=== PATIENT | male | born 1975 | race Caucasian/White ===

== ENCOUNTER 2017-11-25 11:46 | Emergency (ER) | payer SELFPAY ==
[2017-11-25] MEDS ORDERED: OXYCODONE-ACETAMINOPHEN 5-325 MG TABLET PO ONE (12:18)
--- NOTE | 2017-11-25 12:21 | ER Document Report ---
ED Extremity Problem, Lower - General Chief Complaint: Foot Pain Stated Complaint: RIGHT FOOT PAIN Time Seen by Provider: 11/25/17 12:14 Notes: Patient is a 42-year-old male patient complaining of right ankle pain. Patient reports that he was playing with his grandkids 3 days ago in twisted his ankle on the playground. Increased pain and swelling to right ankle noted today. Painful ambulation. No previous injury to that ankle. TRAVEL OUTSIDE OF THE [place] IN LAST 30 DAYS: No - HPI Patient complains to provider of: Injury, Pain, Swelling Location: Ankle - right Recent injury: Possibly Exacerbated by: Movement, Walking Relieved by: Nothing - Related Data Allergies/Adverse Reactions: No Known Allergies Allergy (Verified 11/25/17 11:50) Past Medical History - General Information source: Patient - Social History Smoking Status: Current Every Day Smoker Chew tobacco use (# tins/day): No Frequency of alcohol use: None Lives with: Family, Spouse/Significant other Family History: Reviewed & Not Pertinent Patient has suicidal ideation: No Patient has homicidal ideation: No - Past Medical History Cardiac Medical History: Reports: Hx Hypertension Renal/ Medical History: Denies: Hx Peritoneal Dialysis - Immunizations Hx Diphtheria, Pertussis, Tetanus Vaccination: Yes Review of Systems - Review of Systems Constitutional: No symptoms reported EENT: No symptoms reported Cardiovascular: No symptoms reported Respiratory: No symptoms reported Gastrointestinal: No symptoms reported Genitourinary: No symptoms reported Male Genitourinary: No symptoms reported Musculoskeletal: See HPI Skin: No symptoms reported Hematologic/Lymphatic: No symptoms reported Neurological/Psychological: No symptoms reported Physical Exam - Vital signs Vitals: Temp Pulse Resp BP Pulse Ox 97.8 F 91 16 151/72 H 97 11/25/17 11:55 11/25/17 11:55 11/25/17 11:55 11/25/17 11:55 11/25/17 11:55 Interpretation: Normal - General General appearance: Appears well, Alert - HEENT Head: Normocephalic, Atraumatic Eyes: Normal Pupils: PERRL - Respiratory Respiratory status: No respiratory distress Chest status: Nontender Breath sounds: Normal Chest palpation: Normal - Cardiovascular Rhythm: Regular Heart sounds: Normal auscultation Murmur: No - Abdominal Inspection: Normal Distension: No distension Bowel sounds: Normal Tenderness: Nontender Organomegaly: No organomegaly - Back Back: Normal, Nontender - Extremities General upper extremity: Normal inspection, Nontender, Normal color, Normal ROM , Normal temperature Knee: Normal Calf: Normal Ankle: Tender - Positive soft tissue swelling right lateral malleolus., Edema, Limited ROM. No: Deformity, Ecchymosis Foot: Normal - Neurological Neuro grossly intact: Yes Cognition: Normal Orientation: AAOx4 Jong Coma Scale Eye Opening: Spontaneous Jong Coma Scale Verbal: Oriented [place] Coma Scale Motor: Obeys Commands [place] Coma Scale Total: 15 Speech: Normal Motor strength normal: LUE, RUE, LLE, RLE Sensory: Normal - Psychological Associated symptoms: Normal affect, Normal mood - Skin Skin Temperature: Warm Skin Moisture: Dry Skin Color: Normal Course - Re-evaluation Re-evalutation: 11/25/17 12:21 After performing a Medical Screening Examination, I estimate there is LOW risk for OPEN FRACTURE, COMPARTMENT SYNDROME, DEEP VENOUS THROMBOSIS, ACUTE TENDON RUPTURE, or NEUROVASCULAR INJURY. xray is negative. I consider the discharge disposition reasonable. I have reevaluated this patient multiple times and no significant life threatening changes are noted. The patient and I have discussed the diagnosis and risks, and we agree with discharging home to closely follow-up with their primary doctor or the referral orthopedist with the understanding that symptoms and presentations can change. We also discussed returning to the Emergency Department immediately if new or worsening symptoms occur. We have discussed the symptoms which are most concerning (e.g., changing or worsening pain, numbness, weakness) that necessitate immediate return 11/25/17 13:03 - Vital Signs Vital signs: Temp Pulse Resp BP Pulse Ox 97.8 F 91 16 151/72 H 97 11/25/17 11:55 11/25/17 11:55 11/25/17 11:55 11/25/17 11:55 11/25/17 11:55 Discharge - Discharge Clinical Impression: Right ankle injury Qualifiers: Encounter type: initial encounter Qualified Code(s): S99.911A - Unspecified injury of right ankle, initial encounter Right ankle sprain Qualifiers: Encounter type: initial encounter Involved ligament of ankle: unspecified ligament Qualified Code(s): S93.401A - Sprain of unspecified ligament of right ankle, initial encounter Condition: Stable Disposition: HOME, SELF-CARE Instructions: Ankle Stirrup Splint ([facility]), Use of Crutches ([facility]), Ibuprofen ( General) ([facility]), Ice & Elevation ([facility]), Sprained Ankle ([facility]) Additional Instructions: Navi, your x-ray is negative for fracture but I cannot exclude an internal ankle injury Please wear your ankle splint for comfort and support Use your crutches until you are able to bear weight without pain Keep your foot iced and elevated as much as possible Take your ibuprofen and pain medication as prescribed Follow-up with your primary care or orthopedist if pain persists Return to ER for any worsening Prescriptions: Ibuprofen [Motrin 800 Mg Tablet] 800 mg PO Q6H #20 tablet Oxycodone HCl/Acetaminophen [Percocet 5-325 mg Tablet] 1 - 2 tab PO ASDIR PRN # 10 tablet PRN Reason: Forms: Return to Work
[2017-11-25 13:31] VITALS: BP 119/73
--- NOTE | 2017-11-25 13:31 | RADIOLOGY REPORT (SQ) ---
EXAM DESCRIPTION: ANKLE RIGHT COMPLETE COMPLETED DATE/TIME: 11/25/2017 1:14 pm REASON FOR STUDY: right ankle pain, twisted COMPARISON: None. NUMBER OF VIEWS: Three views. TECHNIQUE: AP, lateral, and oblique radiographic images acquired of the right ankle. LIMITATIONS: None. FINDINGS: MINERALIZATION: Normal. BONES: No acute fracture or dislocation. No worrisome bone lesions. JOINTS: Ankle mortise intact. SOFT TISSUES: No soft tissue swelling. No foreign body. OTHER: No other significant finding. IMPRESSION: No acute fractures identified. TECHNICAL DOCUMENTATION: JOB ID: [id number]- All Rights Reserved Reading location - IP/workstation name: [email or web address]
== END 2017-11-25 13:31 | disposition home or self-care (01) ==
LOC: ER 11:46
DX: S93.401A Sprain of unspecified ligament of right ankle, initial encounter (principal); M25.571 Pain in right ankle and joints of right foot; X50.1XXA Overexertion from prolonged static or awkward postures, initial encounter; Y92.838 Other recreation area as the place of occurrence of the external cause; F17.200 Nicotine dependence, unspecified, uncomplicated; I10 Essential (primary) hypertension
CPT/HCPCS: 99283; 73610; L1902

== ENCOUNTER 2019-06-08 18:01 | Emergency (ER) | payer SELFPAY ==
[2019-06-08] MEDS ORDERED: TETRACAINE HCL 0.5% OPH SOLN 4 ML OD ONE (18:22)
--- NOTE | 2019-06-08 18:24 | ER Document Report ---
ED Medical Screen (RME) - General Chief Complaint: Eye Pain Stated Complaint: EYE PAIN Time Seen by Provider: 06/08/19 18:07 TRAVEL OUTSIDE OF THE [place] IN LAST 30 DAYS: No - Related Data Allergies/Adverse Reactions: No Known Allergies Allergy (Verified 11/25/17 11:50) Past Medical History - Past Medical History Cardiac Medical History: Reports: Hx Hypertension Renal/ Medical History: Denies: Hx Peritoneal Dialysis - Immunizations Hx Diphtheria, Pertussis, Tetanus Vaccination: Yes Physical Exam - Vital signs Vitals: Temp Pulse Resp BP Pulse Ox 97.5 F 63 16 133/75 H 97 06/08/19 18:07 06/08/19 18:07 06/08/19 18:07 06/08/19 18:07 06/08/19 18:07 - HEENT Eyes: Tears, Other - +photophobia Conjunctiva: Injected Visual acuity- Right eye: na Visual acuity- Left eye: 20 /40 Visual acuity- Both eyes: 20/50 Corrective lenses worn: No - right eye effected Course - Vital Signs Vital signs: Temp Pulse Resp BP Pulse Ox 97.5 F 63 16 133/75 H 97 06/08/19 18:07 06/08/19 18:07 06/08/19 18:07 06/08/19 18:07 06/08/19 18:07
--- NOTE | 2019-06-08 19:18 | RADIOLOGY REPORT (SQ) ---
EXAM DESCRIPTION: CT ORBIT/SELLA WITHOUT COMPLETED DATE/TIME: 06/08/2019 7:07 pm REASON FOR STUDY: FB to R eye, weedeating, decreased vision COMPARISON: None. TECHNIQUE: Noncontrasted images through the orbits windowed for bone and soft tissue. Additional co kindra and sagittal reconstructed images reviewed. All images stored on PACS. All CT scanners at this facility use dose modulation, iterative reconstruction, and/or weight based d osing when appropriate to reduce radiation dose to as low as reasonably achievable (ALARA). [facility]: Dose Right [facility]: CareDose [facility]: Dose Right [facility]: Teradose 4D [facility]: Smart Tixers RADIATION DOSE: CT Rad equipment meets quality standard of care and radiation dose reduction techniq ues were employed. CTDIvol: 30.4 mGy. DLP: 361 mGy-cm. mGy. LIMITATIONS: None. FINDINGS: FACIAL BONES: No fracture or bone lesion. ORBITS: The optic globes are round and are intact. There is no orbital foreign body or mass. PARANASAL SINUSES: Clear. No significant mucosal thickening, mass or fluid. No nasal polyps. Maxilla ry sinus outlets are patent. SOFT TISSUES: No mass or edema. INFERIOR BRAIN: Limited view. No acute findings. OTHER: No other significant finding. IMPRESSION: NO ACUTE FINDINGS. TECHNICAL DOCUMENTATION: JOB ID: [id number] Quality ID # [id number]: Final reports with documentation of one or more dose reduction techniques (e.g., Au tomated exposure control, adjustment of the mA and/or kV according to patient size, use of iterative reconstruction technique) 2010 [employer]- All Rights Reserved Reading location - IP/workstation name: [email or web address]
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
[2019-06-08] MEDS ORDERED: ONDANSETRON 4 MG TAB.RAPDIS PO ONE (23:17)
[2019-06-08] MEDS ORDERED: OXYCODONE-ACETAMINOPHEN 5-325 MG TABLET PO ONE (23:17)
[2019-06-08] MEDS ORDERED: BESIFLOXACIN HCL 0.6% OPH SUSP 5 ML BOTTLE OD ONE (23:20)
[2019-06-08] MEDS ORDERED: HYDROCODONE/ACETAMINOPHEN 5-325 MG (6 TAB/ER DISP) PO PRN (23:22)
[2019-06-08] MEDS ORDERED: BESIFLOXACIN HCL 0.6% OPH SUSP 5 ML BOTTLE ONE (23:55)
[2019-06-09 00:04] VITALS: BP 134/76
== END 2019-06-09 00:05 | disposition home or self-care (01) ==
LOC: ER 18:01
DX: H57.11 Ocular pain, right eye (principal); H53.141 Visual discomfort, right eye; F17.200 Nicotine dependence, unspecified, uncomplicated; I10 Essential (primary) hypertension
CPT/HCPCS: 70480; S0119; J3490

== ENCOUNTER 2019-09-10 07:05 | Emergency (ER) | payer SELFPAY ==
[2019-09-10] MEDS ORDERED: HYDROCODONE/ACETAMINOPHEN 5-325 MG (6 TAB/ER DISP) PO PRN (07:58)
[2019-09-10] MEDS ORDERED: OXYCODONE-ACETAMINOPHEN 5-325 MG TABLET PO ONE (07:58)
[2019-09-10] MEDS ORDERED: PENICILLIN V POTASSIUM 500 MG TABLET PO ONE (07:58)
[2019-09-10 08:15] VITALS: BP 130/88
--- NOTE | 2019-09-13 13:48 | ER Document Report ---
Entered by MIKALA RINCON SCRIBE 09/10/19 0758 Acting as scribe for:PAULINA JHAVERI MD ED General - General Chief Complaint: Toothache Stated Complaint: JAW PAIN - LEFT Time Seen by Provider: 09/10/19 07:51 Information source: Patient Notes: 44 year old male presents to the emergency department with a toothache that began two days ago and has been getting worse since. Patient states that he has had associated swelling and has been "sick a little bit" since his toothache started. Patient stated that he vomited once this morning and denied cough or cold-like symptoms. TRAVEL OUTSIDE OF THE [place] IN LAST 30 DAYS: No - Related Data Allergies/Adverse Reactions: No Known Allergies Allergy (Verified 09/10/19 07:14) Past Medical History - General Information source: Patient - Social History Smoking Status: Current Every Day Smoker Cigarette use (# per day): Yes - 1 1/2 pack per day Chew tobacco use (# tins/day): No Frequency of alcohol use: None Drug Abuse: None Family History: Reviewed & Not Pertinent Patient has suicidal ideation: No Patient has homicidal ideation: No - Past Medical History Cardiac Medical History: Reports: Hx Hypertension Surgical Hx: Negative - Immunizations Hx Diphtheria, Pertussis, Tetanus Vaccination: Yes Review of Systems - Review of Systems Constitutional: No symptoms reported EENT: No symptoms reported Cardiovascular: No symptoms reported Respiratory: See HPI. denies: Cough Gastrointestinal: See HPI, Vomiting Genitourinary: No symptoms reported Male Genitourinary: No symptoms reported Musculoskeletal: No symptoms reported Skin: No symptoms reported Hematologic/Lymphatic: No symptoms reported Neurological/Psychological: No symptoms reported -: Yes All other systems reviewed and negative Physical Exam - Vital signs Vitals: Temp Pulse Resp BP Pulse Ox 98.6 F 58 L 16 127/76 H 97 09/10/19 07:11 09/10/19 07:11 09/10/19 07:11 09/10/19 07:11 09/10/19 07:11 - Notes Notes: PHYSICAL EXAMINATION: GENERAL: Well-appearing, well-nourished and in no acute distress. HEAD: Atraumatic, normocephalic. EYES: Pupils equal round and reactive to light, extraocular movements intact, sclera anicteric, conjunctiva are normal. ENT: nares patent, oropharynx clear without exudates. Moist mucous membranes. DENTAL: The left lower first molar has the lateral side of the tooth broken off with blackened decay. There is some gum swelling but no abscess. The second and third molars are not present. The area is exquisitely tender. NECK: Normal range of motion, supple without lymphadenopathy. There is some tenderness to palpate the left submandibular region, but no discrete mass or lymph nodes. LUNGS: Breath sounds clear to auscultation bilaterally and equal. No wheezes rales or rhonchi. HEART: Regular rate and rhythm without murmurs ABDOMEN: Soft, nontender, normoactive bowel sounds. No guarding, no rebound. N o masses appreciated. EXTREMITIES: Normal range of motion, no pitting or edema. No cyanosis. NEUROLOGICAL: Cranial nerves grossly intact. Normal speech, normal gait. Normal sensory, motor, and reflex exams. PSYCH: Normal mood, normal affect. SKIN: Warm, Dry, normal turgor, no rashes or lesions noted. Course - Vital Signs Vital signs: Temp Pulse Resp BP Pulse Ox 97.2 F 57 L 14 130/88 H 98 09/10/19 08:14 09/10/19 08:14 09/10/19 08:14 09/10/19 08:14 09/10/19 08:14 Discharge - Discharge Clinical Impression: Toothache, Dental decay Condition: Stable Disposition: HOME, SELF-CARE Additional Instructions: Toothache Your pain is due to dental decay. The tooth must be repaired in order for you to feel better. You will, therefore, be referred to a dentist. Severe swelling or drainage around a tooth usually means a deep dental abscess. This also requires evaluation and treatment by the dentist, but antibiotics may be prescribed while awaiting dental treatment. You should be rechecked immediately if you develop major swelling of the face, increasing pain, a lump in the jaw or gums, headache, or fever. Try Fix-A-Tooth to seal the exposed portion of the painful molar. Take ibuprofen 600 mg every 6 hours for pain and inflammation control. Take the medications as prescribed. Follow-up with a dentist next week. RETURN TO THE EMERGENCY ROOM IF ANY NEW OR WORSENING SYMPTOMS. Prescriptions: Hydrocodone/Acetaminophen [Chacon 5-325 mg Tablet] 1 tab PO ASDIR PRN #12 tablet PRN Reason: Penicillin V Potassium [Penicillin Vk 500 mg Tablet] 500 mg PO QID #28 tablet Scribe Attestation: 09/10/19 07:59 I personally performed the services described in the documentation, reviewed and edited the documentation which was dictated to the scribe in my presence, and it accurately records my words and actions. I personally performed the services described in the documentation, reviewed and edited the documentation which was dictated to the scribe in my presence, and it accurately records my words and actions.
== END 2019-09-10 08:15 | disposition home or self-care (01) ==
LOC: ER 07:05
DX: Z53.21 Procedure and treatment not carried out due to patient leaving prior to being seen by health care provider (principal); R68.84 Jaw pain
CPT/HCPCS: 99282

== ENCOUNTER 2019-09-14 03:08 | Emergency (ER) | payer SELFPAY ==
[2019-09-14] MEDS ORDERED: OXYCODONE-ACETAMINOPHEN 5-325 MG TABLET PO ONE (08:50)
[2019-09-14] MEDS ORDERED: ONDANSETRON 4 MG TAB.RAPDIS PO ONE (08:50)
--- NOTE | 2019-09-14 08:54 | ER Document Report ---
ED Oral Problem - General Chief Complaint: Toothache Stated Complaint: TOOTH ACHE Time Seen by Provider: 09/14/19 08:22 Primary Care Provider: [facility] [Provider Group] - Follow up in 3-5 days TRAVEL OUTSIDE OF THE [place] IN LAST 30 DAYS: No - HPI Notes: 44-year-old male to the emergency department with complaints of persistent left upper tooth ache for the past 5 days. He was seen on September 10 for the same tooth ache and written for antibiotics and pain medicine. He states that the [place] did not help and he is out of the pain medicine. He states he is still continuing to take the antibiotics. He denies any facial swelling, fevers, drooling, change in voice, difficulty swallowing, shortness of breath. He states he called [facility] and they cannot get him in until October. He is a smoker. - Related Data Allergies/Adverse Reactions: No Known Allergies Allergy (Verified 09/14/19 03:21) Past Medical History - General Information source: Patient, Relative - Social History Smoking Status: Current Every Day Smoker Chew tobacco use (# tins/day): No Frequency of alcohol use: None Drug Abuse: None Lives with: Spouse/Significant other Family History: Reviewed & Not Pertinent Patient has suicidal ideation: No Patient has homicidal ideation: No - Past Medical History Cardiac Medical History: Reports: Hx Hypertension Renal/ Medical History: Denies: Hx Peritoneal Dialysis - Immunizations Hx Diphtheria, Pertussis, Tetanus Vaccination: Yes Review of Systems - Review of Systems Constitutional: denies: Chills, Fever EENT: See HPI, Dental problem Cardiovascular: denies: Chest pain, Palpitations, Heart racing, Orthopnea, Dyspnea, Syncope, Dizziness, Lightheaded Respiratory: denies: Cough, Short of breath Gastrointestinal: denies: Abdominal pain, Diarrhea, Nausea, Vomiting Genitourinary: No symptoms reported Musculoskeletal: No symptoms reported Skin: No symptoms reported Hematologic/Lymphatic: No symptoms reported Neurological/Psychological: No symptoms reported -: Yes All other systems reviewed and negative Physical Exam - Vital signs Vitals: Temp Pulse Resp BP Pulse Ox 97.2 F 52 L 18 151/95 H 100 09/14/19 03:21 09/14/19 03:21 09/14/19 03:21 09/14/19 03:21 09/14/19 03:21 Interpretation: Normal - General General appearance: Appears well, Alert In distress: None - HEENT Head: Normocephalic, Atraumatic Eyes: Normal Pupils: PERRL Ears: Normal External canal: Normal Tympanic membrane: Normal Sinus: Normal Nasal: Normal Mouth/Lips: Normal, Caries - There are several caries throughout the mouth. To the left upper teeth, tooth #16 is decayed down to the gumline. It is very tender to palpation. The gum surrounding it is erythematous and edematous but there is no arnie fluctuant abscess. There is no facial swelling. There is no Adelso's angina. Airway is grossly patent Pharynx: Normal. No: Exudate, Peritonsillar abscess, Post nasal drainage, Retropharyngeal abscess, Tonsillar hypertrophy, Uvular edema, Potential airway comprom. Neck: Normal, Supple. No: Lymphadenopathy, Meningismus - Respiratory Respiratory status: No respiratory distress Chest status: Nontender Breath sounds: Normal. No: Rales, Rhonchi, Wheezing Chest palpation: Normal - Cardiovascular Rhythm: Regular Heart sounds: Normal auscultation Murmur: No - Abdominal Inspection: Normal Distension: No distension Bowel sounds: Normal Tenderness: Nontender Organomegaly: No organomegaly - Back Back: Normal, Nontender - Neurological Neuro grossly intact: Yes Cognition: Normal Orientation: AAOx4 Liberty Coma Scale Eye Opening: Spontaneous Liberty Coma Scale Verbal: Oriented Liberty Coma Scale Motor: Obeys Commands Liberty Coma Scale Total: 15 Speech: Normal Cranial nerves: Normal Cerebellar coordination: Normal Motor strength normal: LUE, RUE, LLE, RLE 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 No: Pronator drift Sensory: Normal - Psychological Associated symptoms: Normal affect, Normal mood - Skin Skin Temperature: Warm Skin Moisture: Dry Skin Color: Normal Course - Re-evaluation Re-evalutation: 09/14/19 Offered patient dental block but he declined. He would prefer oral medicine. Will give small amount of Percocet and viscous lidocaine for home use. Have encouraged close follow-up with dentist. I encouraged finishing antibiotics. Patient agrees with the plan. Will discharge home. - Vital Signs Vital signs: Temp Pulse Resp BP Pulse Ox 97.6 F 85 16 82/51 L 100 09/14/19 09:05 09/14/19 09:05 09/14/19 09:05 09/14/19 09:05 09/14/19 03:21 Discharge - Discharge Clinical Impression: Toothache Condition: Stable Disposition: HOME, SELF-CARE Instructions: [facility], Toothache (H) Additional Instructions: Call dental clinic and see if he can get a sooner appointment. Take medicines as prescribed. Please complete all of your antibiotics. Prescriptions: Oxycodone HCl/Acetaminophen [Percocet 5-325 mg Tablet] 1 tab PO Q6H PRN #9 tablet PRN Reason: Lidocaine HCl [Xylocaine 2% Viscous Soln 15 ml Udcup] 15 ml PO TID #150 ml Referrals: [facility] [Provider Group] - Follow up in 3-5 days
[2019-09-14 09:06] VITALS: BP 82/51
== END 2019-09-14 09:09 | disposition home or self-care (01) ==
LOC: ER 03:08
DX: K08.9 Disorder of teeth and supporting structures, unspecified (principal); K02.9 Dental caries, unspecified; F17.200 Nicotine dependence, unspecified, uncomplicated; I10 Essential (primary) hypertension
CPT/HCPCS: S0119